=== PATIENT | male | born 1950 | race American Indian/Alaskan Native ===

== ENCOUNTER 2021-03-06 10:29 | Day surgery (SDC) | payer OTHER ==
[2021-03-06] MEDS ORDERED: fentaNYL 100 MCG/2 ML SDV IV ONE (10:30)
[2021-03-06] MEDS ORDERED: Sodium Chloride 0.9% 10 ML Syringe FLUSH PRN (10:30)
[2021-03-06] MEDS ORDERED: Midazolam 1 MG/ML 2 ML SDV IV ONE (10:30)
[2021-03-06] MEDS: Lactated Ringers 1,000 ML IV SCH (11:20)
--- NOTE | 2021-03-06 14:20 | OR ---
DATE OF OPERATION: 03/06/2021 SURGEON: Francesca Zarco MD PREOPERATIVE DIAGNOSIS: 1. Visually significant cataract, right eye. 2. Floppy iris syndrome, right eye. POSTOPERATIVE DIAGNOSES: 1. Visually significant cataract, right eye. 2. Floppy iris syndrome, right eye. PROCEDURES PERFORMED: Complex phacoemulsification with intraocular lens placement, right eye, CPT 13647. ASSISTANTS: None. ANESTHESIA: Local with sedation. COMPLICATIONS: None. BLOOD LOSS: None. IMPLANTS: A pre-loaded DCB00 16.5 diopter lens implanted. CDE: 3.37. DESCRIPTION OF PROCEDURE: After risks and benefits were reviewed with the patient, consent was obtained in the preoperative area, and the operative eye was marked with a surgical pen. In the preoperative area, a pledget was used to dilate the pupil consisting of a mixture of phenylephrine 10%, cyclopentolate 2%, moxifloxacin 0.5%, and bupivacaine 0.75%. The patient was taken to the operating room, where a time-out was performed, and the patient was placed under monitored anesthesia care. Topical tetracaine was used for anesthesia. The operative eye was prepped and draped for ophthalmic surgery, and the microscope was brought into position and focused. A paracentesis incision was made, followed by injection of Shugarcaine into the anterior chamber, followed by injection of Viscoat into the anterior chamber. Due to floppy iris syndrome and poor pupillary dilation, a Malyugin ring was used to retract the pupil to 6.25 mm. A microkeratome blade was used to make a corneal limbal incision temporally. A cystotome was used to make the beginning of the capsulorrhexis, which was carried around 360 degrees in a curvilinear fashion using Utrata forceps. A Kenney cannula with BSS was used to hydrodissect and hydrodelineate the nucleus. The nucleus was removed in a divide and conquer manner using phacoemulsification. Irrigation and aspiration were used to remove the remaining cortical material. Provisc was used to inflate the capsular bag, and a pre-loaded DCB00 16.5 diopter lens, serial number [id number] was injected into the capsular bag. A Sinskey hook was used to position and center the lens. The Malyugin ring was then removed from the anterior chamber and discarded. Next, irrigation and aspiration was used to remove any remaining viscoelastic and cortical material from the anterior chamber. BSS on a cannula was used to inflate the anterior chamber and hydrate the wound. The wound was checked and found to be watertight. 1 mg of Moxifloxacin was injected into the anterior chamber. Drapes were removed and the eye was cleaned. A drop of brimonidine 0.2% and a drop of TobraDex was placed. The eye was shielded, and the patient was taken to the recovery room in stable condition. /[id number] SEE/CINDY
== END 2021-03-06 13:05 | disposition home or self-care (01) ==
LOC: FB.SDS 10:29
PROVIDERS: ATTEND Ophthalmology
DX: H25.13 Age-related nuclear cataract, bilateral (principal); H16.4 Corneal neovascularization; H02.831 Dermatochalasis of right upper eyelid; H35.372 Puckering of macula, left eye; H02.834 Dermatochalasis of left upper eyelid; H04.123 Dry eye syndrome of bilateral lacrimal glands; H21.81 Floppy iris syndrome; I10 Essential (primary) hypertension; N40.0 Benign prostatic hyperplasia without lower urinary tract symptoms; E11.36 Type 2 diabetes mellitus with diabetic cataract; M17.0 Bilateral primary osteoarthritis of knee; F43.10 Post-traumatic stress disorder, unspecified; G89.29 Other chronic pain; M54.59 Other low back pain; Z87.891 Personal history of nicotine dependence; Z79.899 Other long term (current) drug therapy
CPT/HCPCS: 00142-QZ; 82947; J2250; J3010; J7120; V2632

== ENCOUNTER 2021-03-27 08:18 | Day surgery (SDC) | payer OTHER ==
[~2021-03-27 08:18] MED LIST: Lactated Ringers 1,000 ML IV SCH; Sodium Chloride 0.9% 10 ML Syringe FLUSH PRN
[2021-03-27] MEDS ORDERED: fentaNYL 100 MCG/2 ML SDV IV ONE (08:19)
[2021-03-27] MEDS ORDERED: Midazolam 1 MG/ML 2 ML SDV IV ONE (08:19)
[2021-03-27] MEDS ORDERED: acetaZOLAMIDE 500 MG Cap.ER PO ONE (10:00)
--- NOTE | 2021-03-27 13:24 | OR ---
DATE OF OPERATION: 03/27/2021 SURGEON: Francesca Zarco MD PREOPERATIVE DIAGNOSES: 1. Visually significant cataract, left eye. 2. Floppy iris syndrome, left eye. POSTOPERATIVE DIAGNOSES: 1. Visually significant cataract, left eye. 2. Floppy iris syndrome, left eye. PROCEDURES PERFORMED: Complex phacoemulsification with intraocular lens placement, left eye, CPT 75751. ASSISTANTS: None. ANESTHESIA: Local with sedation. COMPLICATIONS: None. BLOOD LOSS: None. IMPLANTS: A pre-loaded DCB00 16.0 diopter lens implanted. CDE: 2.79. DESCRIPTION OF PROCEDURE: After risks and benefits were reviewed with the patient, consent was obtained in the preoperative area, and the operative eye was marked with a surgical pen. In the preoperative area, a pledget was used to dilate the pupil consisting of a mixture of phenylephrine 10%, cyclopentolate 2%, moxifloxacin 0.5%, and bupivacaine 0.75%. The patient was taken to the operating room, where a time-out was performed, and the patient was placed under monitored anesthesia care. Topical tetracaine was used for anesthesia. The operative eye was prepped and draped for ophthalmic surgery, and the microscope was brought into position and focused. A paracentesis incision was made, followed by injection of preservative-free 1% lidocaine into the anterior chamber, followed by injection of Viscoat into the anterior chamber. Due to floppy iris syndrome and poor pupillary dilation, a Malyugin ring was used to retract the pupil to 6.25 mm. A microkeratome blade was used to make a corneal limbal incision temporally. A cystotome was used to make the beginning of the capsulorrhexis, which was carried around 360 degrees in a curvilinear fashion using Utrata forceps. A Kenney cannula with BSS was used to hydrodissect and hydrodelineate the nucleus. The nucleus was removed in a divide and conquer manner using phacoemulsification. Irrigation and aspiration were used to remove the remaining cortical material. Provisc was used to inflate the capsular bag, and a pre-loaded DCB00 16.0 diopter lens, serial number [id number] was injected into the capsular bag. A Sinskey hook was used to position and center the lens. The Malyugin ring was then removed from the anterior chamber and discarded. Next, irrigation and aspiration was used to remove any remaining viscoelastic and cortical material from the anterior chamber. BSS on a cannula was used to inflate the anterior chamber and hydrate the wound. The wound was checked and found to be watertight. 1 mg of Moxifloxacin was injected into the anterior chamber. Drapes were removed and the eye was cleaned. A drop of brimonidine 0.2% and a drop of TobraDex was placed. The eye was shielded, and the patient was taken to the recovery room in stable condition. /[id number] SEE/CINDY
== END 2021-03-27 11:00 | disposition home or self-care (01) ==
LOC: FB.SDS 08:18
PROVIDERS: ATTEND Ophthalmology
DX: E11.36 Type 2 diabetes mellitus with diabetic cataract (principal); H25.13 Age-related nuclear cataract, bilateral; H16.4 Corneal neovascularization; H35.372 Puckering of macula, left eye; H02.831 Dermatochalasis of right upper eyelid; H02.834 Dermatochalasis of left upper eyelid; H04.123 Dry eye syndrome of bilateral lacrimal glands; H21.81 Floppy iris syndrome; I10 Essential (primary) hypertension; K21.9 Gastro-esophageal reflux disease without esophagitis; N40.0 Benign prostatic hyperplasia without lower urinary tract symptoms; G89.29 Other chronic pain; M54.50 Low back pain, unspecified; F43.10 Post-traumatic stress disorder, unspecified; Z88.8 Allergy status to other drugs, medicaments and biological substances; Z87.891 Personal history of nicotine dependence; Z79.899 Other long term (current) drug therapy; Z79.82 Long term (current) use of aspirin
CPT/HCPCS: 00142; 66982; 82947; A9270; J2250; J3010; J7120; V2632